=== PATIENT | male | born 1970 | race Caucasian/White ===

== ENCOUNTER 2017-11-07 11:40 | Day surgery (SDC) | payer OTHER ==
[2017-11-07] MEDS ORDERED: NS 1,000 ML IV (12:15)
[2017-11-07] MEDS ORDERED: PROPOFOL 200 MG/20 ML VIAL As Ordered (12:23)
[2017-11-07] MEDS ORDERED: LIDOCAINE 2% MDV 20 ML VIAL As Ordered (12:23)
== END 2017-11-07 13:04 | disposition home or self-care (01) ==
LOC: M OPP 11:40
DX: R13.10 Dysphagia, unspecified (principal); R12 Heartburn; K22.8 Other specified diseases of esophagus; K22.2 Esophageal obstruction; K21.9 Gastro-esophageal reflux disease without esophagitis; Z85.820 Personal history of malignant melanoma of skin; R06.83 Snoring; Z79.899 Other long term (current) drug therapy; Z80.3 Family history of malignant neoplasm of breast
CPT/HCPCS: 43239

== ENCOUNTER → 2018-04-05 | Outpatient (CLI) | payer OTHER | LOC: M RAD 09:57 | DX: M23.322 Other meniscus derangements, posterior horn of medial meniscus, left knee (principal) ==

== ENCOUNTER → 2019-09-06 | Outpatient (REF) | payer OTHER ==
[~2019-09-06] MED LIST: OMEP40CA97 PO; acid reflux med
[2019-09-06 12:37] LABS: BASO # 0.1 10^3/uL (0.0-0.2); BASO % 1.1 % (0.0-1.0); EOS # 0.2 10^3/uL (0.0-0.5); EOS % 4.4 % (0.0-3.0); HEMATOCRIT 47.3 % (42.0-52.0); HEMOGLOBIN 15.3 g/dl (13.5-17.5); LYMPH # 1.6 10^3/uL (1.5-5.0); LYMPH % 29.3 % (24.0-44.0); MEAN CORPUSCULAR HEMOGLOBIN 28.9 pg (27.0-33.0); MEAN CORPUSCULAR HGB CONC 32.3 g/dl (32.0-36.5); MEAN CORPUSCULAR VOLUME 89.4 fl (80.0-96.0); MONO # 0.5 10^3/uL (0.0-0.8); MONO % 8.4 % (0.0-5.0); NEUTROPHILS # 3.1 10^3/uL (1.5-8.5); NEUTROPHILS % 56.6 % (36.0-66.0); PLATELET COUNT, AUTOMATED 214 10^3/uL (150-450); RED BLOOD COUNT 5.29 10^6/uL (4.30-6.10); WHITE BLOOD COUNT 5.5 10^3/uL (4.0-10.0)
[2019-09-06 12:55] LABS: ALBUMIN 3.4 GM/DL (3.2-5.2); ALT/SGPT 25 U/L (12-78); BILIRUBIN,TOTAL 0.4 MG/DL (0.2-1.0); BLOOD UREA NITROGEN 15 MG/DL (7-18); CALCIUM LEVEL 8.6 MG/DL (8.5-10.1); CARBON DIOXIDE LEVEL 28 MEQ/L (21-32); CHLORIDE LEVEL 104 MEQ/L (98-107); CHOLESTEROL LEVEL 189 MG/DL (<200); CHOLESTEROL RISK RATIO 5.558 (<5); CREATININE FOR GFR 1.05 MG/DL (0.70-1.30); GLOMERULAR FILTRATION RATE > 60.0 (>56); GLUCOSE, FASTING 93 MG/DL (70-100); HDL CHOLESTEROL 34 MG/DL (>40); LDL CHOLESTEROL 132 MG/DL (<100); NON-HDL-C 155 MG/DL; SODIUM LEVEL 139 MEQ/L (136-145); TOTAL PROTEIN 7.3 GM/DL (6.4-8.2); TRIGLYCERIDES LEVEL 117 MG/DL (<150)
== END ==
LOC: M LABDRAW1 11:45
PROVIDERS: ATTEND Family Medicine
DX: Z00.00 Encounter for general adult medical examination without abnormal findings (principal)

== ENCOUNTER → 2020-06-06 | Outpatient (CLI) | payer OTHER ==
[~2020-06-06] MED LIST changes: +ADVICAP PO
== END ==
LOC: M LABSMTC 12:53
PROVIDERS: ATTEND Anesthesiology
DX: Z01.812 Encounter for preprocedural laboratory examination (principal); Z11.59 Encounter for screening for other viral diseases

== ENCOUNTER 2020-06-11 12:21 | Day surgery (SDC) | payer OTHER ==
[~2020-06-11] VITALS: Ht 180.3 cm; Wt 97.9 kg
[~2020-06-11 12:21] MED LIST changes: -ADVICAP PO; +LIDOCAINE 2% 100MG/5ML SDV (FOR ANES.) As Ordered ONE; +propofoL 200 MG/20 ML VIAL As Ordered ONE
[2020-06-11] MEDS ORDERED: ADVICAP PO (12:56)
[2020-06-11] MEDS ORDERED: NS 1,000 ML IV ONE (13:15)
[2020-06-11 14:03] VITALS: BP 165/98
--- NOTE | 2020-06-25 11:36 | ROOR ---
Patient Name: Omar Glass Procedure Date: 06/11/2020 1:17 PM Date of : 1970 Age: 49 Room: [facility] Gender: Male Note Status: Finalized Procedure: Total Colonoscopy to Cecum + Cold Snare Polypectomy Indications: Screening for colorectal malignant neoplasm Providers: Dae Bautista MD Referring MD: Chioma William MD Requesting Provider: Medicines: Monitored Anesthesia Care Complications: No immediate complications. Procedure: Pre-Anesthesia Assessment: - The heart rate, respiratory rate, oxygen saturations, blood pressure, adequacy of pulmonary ventilation, and response to care were monitored throughout the procedure. The Colonoscope was introduced through the anus and advanced to the cecum, identified by appendiceal orifice and ileocecal valve. The colonoscopy was performed without difficulty. The patient tolerated the procedure well. The quality of the bowel preparation was excellent. Findings: The perianal and digital rectal examinations were normal. Non-bleeding internal hemorrhoids were found during retroflexion. The hemorrhoids were small and Grade I (internal hemorrhoids that do not prolapse). A small polyp was found at 20 cm proximal to the anus. The polyp was sessile. The polyp was removed with a cold snare. Resection and retrieval were complete. The exam was otherwise without abnormality on direct and retroflexion views. Impression: - Non-bleeding internal hemorrhoids. - One small polyp at 20 cm proximal to the anus, removed with a cold snare. Resected and retrieved. - The examination was otherwise normal on direct and retroflexion views. - The exam was otherwise normal to the cecum. Recommendation: - Patient has a contact number available for emergencies. The signs and symptoms of potential delayed complications were discussed with the patient. Return to normal activities tomorrow. Written discharge instructions were provided to the patient. - High fiber diet. - Discharge patient to home. - Continue present medications. - Await pathology results. - Telephone GI clinic for pathology results in 1 week. - Repeat colonoscopy in 5 years for surveillance. - Return to referring physician. - The findings and recommendations were discussed with the patient. Dae Bautista MD Dae Bautista MD 06/11/2020 1:36:08 PM Number of Addenda: 0 Note Initiated On: 06/11/2020 1:17 PM Estimated Blood Loss: Estimated blood loss: none.
== END 2020-06-11 14:04 | disposition home or self-care (01) ==
LOC: M OPP 12:21
PROVIDERS: ATTEND Internal Medicine Gastroenterology
DX: Z12.11 Encounter for screening for malignant neoplasm of colon (principal); K64.0 First degree hemorrhoids; D12.6 Benign neoplasm of colon, unspecified

== ENCOUNTER → 2022-11-04 | Outpatient (CLI) | payer OTHER ==
[~2022-11-04] MED LIST changes: +ADVICAP PO; -LIDOCAINE 2% 100MG/5ML SDV (FOR ANES.) As Ordered ONE; +OMEP40CA4 PO; -OMEP40CA97 PO; -propofoL 200 MG/20 ML VIAL As Ordered ONE
== END ==
LOC: M WUC 10:29
PROVIDERS: ATTEND Internal Medicine
DX: M25.551 Pain in right hip (principal)

== ENCOUNTER 2024-02-08 08:35 | Day surgery (SDC) | payer OTHER ==
[~2024-02-08] VITALS: Ht 177.8 cm; Wt 95.3 kg
[~2024-02-08 08:35] MED LIST changes: +LIDOCAINE 2% 100MG/5ML SDV (FOR ANES.) As Ordered ONE; +propofoL 500 MG/50 ML VIAL As Ordered ONE
[2024-02-08] MEDS: NS 1,000 ML IV ONE (08:52)
[2024-02-08 09:28] VITALS: TEMP 97.5
[2024-02-08] MEDS ORDERED: LABETALOL 100MG/20ML VIAL As Ordered ONE (09:28)
[2024-02-08 09:47] VITALS: BP 129/81; O2SAT 96
== END 2024-02-08 09:55 | disposition home or self-care (01) ==
LOC: M OPP 08:35
PROVIDERS: ATTEND Internal Medicine Gastroenterology
DX: Z12.11 Encounter for screening for malignant neoplasm of colon (principal); Z86.010 Personal history of colon polyps; K64.0 First degree hemorrhoids; Z79.1 Long term (current) use of non-steroidal anti-inflammatories (NSAID); Z79.899 Other long term (current) drug therapy
CPT/HCPCS: 45378; J1920

== ENCOUNTER 2025-05-20 07:43 | Emergency (ER) | payer OTHER ==
[~2025-05-20] VITALS: Ht 177.8 cm; Wt 94.2 kg
[~2025-05-20 07:43] MED LIST changes: -LIDOCAINE 2% 100MG/5ML SDV (FOR ANES.) As Ordered ONE; -propofoL 500 MG/50 ML VIAL As Ordered ONE
[2025-05-20] MEDS: GLUCAGON INJ 1 MG VIAL IV STA (10:33)
[2025-05-20] MEDS ORDERED: METH-1165 PO (11:32)
[2025-05-20] MEDS ORDERED: KETO-204 PO (11:32)
[2025-05-20 11:38] VITALS: BP 131/82; TEMP 97.9; O2SAT 96
[2025-05-20] MEDS: METHOCARBAMOL 1,000 MG/10 ML VIAL IV ONE (11:57)
[2025-05-20] MEDS: KETOROLAC 30 MG/ML 1 ML VIAL IV ONE (11:57)
== END 2025-05-20 12:17 | disposition home or self-care (01) ==
LOC: M ED 07:43
DX: T18.128A Food in esophagus causing other injury, initial encounter (principal); S39.012A Strain of muscle, fascia and tendon of lower back, initial encounter; Y92.9 Unspecified place or not applicable; Y93.9 Activity, unspecified; Y99.9 Unspecified external cause status; K21.9 Gastro-esophageal reflux disease without esophagitis; Z79.2 Long term (current) use of antibiotics; Z79.899 Other long term (current) drug therapy
CPT/HCPCS: 96374; 96375; 99284; J1610; J1885; J2800

== ENCOUNTER 2025-06-05 11:15 | Day surgery (SDC) | payer OTHER ==
[~2025-06-05] VITALS: Ht 177.8 cm; Wt 95.3 kg
[~2025-06-05 11:15] MED LIST changes: +KETO-204 PO; +METH-1165 PO; +PRIL20TA2 PO
[2025-06-05] MEDS ORDERED: LIDOCAINE 2% 100 MG/5 ML SDV (FOR ANES.) As Ordered ONE (12:28)
[2025-06-05 13:06] VITALS: TEMP 97.1
[2025-06-05 13:21] VITALS: BP 145/83; O2SAT 95
== END 2025-06-05 13:25 | disposition home or self-care (01) ==
LOC: M OPP 11:15
PROVIDERS: ATTEND Internal Medicine Gastroenterology
DX: K20.0 Eosinophilic esophagitis (principal); R13.10 Dysphagia, unspecified; Z79.899 Other long term (current) drug therapy
CPT/HCPCS: 43249; J3010